=== PATIENT | female | born 1965 | race Caucasian/White ===

== ENCOUNTER 2017-01-02 08:57 | Emergency (ER) | payer OTHER ==
[2017-01-02 09:16] VITALS: BP 162/109
[2017-01-02] MEDS ORDERED: Bacitracin Oint 1 GM U/D Packet TOP ONE (09:17)
--- NOTE | 2017-01-02 09:19 | EDM.PDOC ---
[id number]: FISH HOOK RIGHT FOOT Time Seen by Provider: 01/02/17 09:19 Source of Information: Reports: Patient History Limitations: Reports: No Limitations - History of Present Illness INITIAL COMMENTS - FREE TEXT/NARRATIVE: 51-year-old female who has a fish hook embedded into the lateral aspect of her right foot. He was in the carpet and she stepped on it. Onset: Today Severity: Mild Right Feet Pain Score (Numeric/FACES): 1 - Related Data Allergies Allergy/AdvReac Type Severity Reaction Status Date / Time Sulfa (Sulfonamide Allergy Rash Verified 01/02/17 09:26 Antibiotics) Home Meds: Home Meds Cetirizine HCl [Zyrtec] 10 mg PO DAILY 01/02/17 [History] Levothyroxine 112 mcg PO BEDTIME 01/02/17 [History] ED ROS GENERAL - Review of Systems Review Of Systems: See Below Respiratory: Denies: Shortness of Breath GI/Abdominal: Denies: Nausea, Vomiting Musculoskeletal: Reports: Other (Chronic arthritis) Psychiatric: Reports: No Symptoms ED EXAM, SKIN/RASH Exam: See Below Exam Limited By: No Limitations General Appearance: Alert, No Apparent Distress Respiratory/Chest: No Respiratory Distress Extremities: Other (Exam is otherwise limited to the right foot. There is one rasheed of a moderate size hook embedded into the lateral aspect of the foot.) Course - Vital Signs Last Recorded V/S: Last Vital Signs Temp 97.6 F 01/02/17 09:29 Pulse 69 01/02/17 09:29 Resp 16 01/02/17 09:29 BP 162/109 H 01/02/17 09:29 Pulse Ox 98 01/02/17 09:29 - Orders/Labs/Meds Meds: Medications Discontinued Medications Generic Name Dose Route Start Last Admin Trade Name Freq PRN Reason Stop Dose Admin Bacitracin 1 dose 01/02/17 09:17 01/02/17 09:29 Bacitracin Oint 1 Gm TOP 01/02/17 09:18 1 dose ONETIME ONE Administration Lidocaine HCl 5 ml 01/02/17 09:17 01/02/17 09:29 Xylocaine-Mpf 1% INJECT 01/02/17 09:18 5 ml ONETIME ONE Administration - Re-Assessments/Exams Free Text/Narrative Re-Assessment/Exam: 01/02/17 09:37 The area was sterilized with alcohol, a small amount of 1% lidocaine was infiltrated in the area and the needle back without difficulty. It was again sterilized with alcohol, a small amount of bacitracin was applied and a Band- Aid. Patient should keep the wound covered and clean while healing. Departure - Departure Time of Disposition: 09:48 Disposition: Home, Self-Care 01 Condition: good Clinical Impression: Foreign body in foot, right Qualifiers: Encounter type: initial encounter Qualified Code(s): S90.851A - Superficial foreign body, right foot, initial encounter - Discharge Information Instructions: Puncture Wound, [id number] Referrals: PCP,None [Primary Care Provider] - Forms: ED Department Discharge Care Plan Goals: Keep the wound covered and clean while healing. Return if concerns of infection or not healing satisfactorily.
== END 2017-01-02 09:48 | disposition home or self-care (01) ==
LOC: JP.ED 08:57
DX: S90.851A Superficial foreign body, right foot, initial encounter (principal); W45.8XXA Other foreign body or object entering through skin, initial encounter; Z88.2 Allergy status to sulfonamides; Z79.899 Other long term (current) drug therapy
CPT/HCPCS: 99283